=== PATIENT | female | born 1990 | race Two or more races ===

== ENCOUNTER 2019-09-23 09:03 | Emergency (ER) | payer OTHER ==
[~2019-09-23] VITALS: Ht 157.5 cm; Wt 83.0 kg
== END 2019-09-23 12:58 | disposition home or self-care (01) ==
LOC: ER 09:03
DX: R05 Cough (principal)

== ENCOUNTER → 2019-10-13 | Outpatient (CLI) | payer OTHER | END | disposition home or self-care (01) | LOC: PRENATAL 10-07 09:00 | DX: O35.3XX0 Maternal care for (suspected) damage to fetus from viral disease in mother, not applicable or unspecified (principal); O34.219 Maternal care for unspecified type scar from previous cesarean delivery; O99.212 Obesity complicating pregnancy, second trimester; O35.0XX0 Maternal care for (suspected) central nervous system malformation in fetus, not applicable or unspecified; O26.872 Cervical shortening, second trimester ==

== ENCOUNTER 2019-12-08 09:55 | Outpatient (CLI) | payer OTHER | END 2019-12-08 10:05 | disposition home or self-care (01) | LOC: RAD 09:55 | DX: R76.11 Nonspecific reaction to tuberculin skin test without active tuberculosis (principal) ==

== ENCOUNTER → 2020-01-05 | Outpatient (CLI) | payer OTHER ==
[~2020-01-05] MED LIST: PRENATAL PLUS1 EAC1 PO
== END | disposition home or self-care (01) ==
LOC: PRENATAL 10:00
PROVIDERS: ATTEND Specialist
DX: O36.8131 Decreased fetal movements, third trimester, fetus 1 (principal); O26.843 Uterine size-date discrepancy, third trimester; O24.410 Gestational diabetes mellitus in pregnancy, diet controlled; O34.211 Maternal care for low transverse scar from previous cesarean delivery

== ENCOUNTER 2020-02-13 13:35 | Inpatient (IN) | payer OTHER ==
[~2020-02-13] VITALS: Ht 157.5 cm; Wt 4.1 kg
[2020-02-17] MEDS ORDERED: PRENATAL PLUS1 EAC1 PO (06:13)
[2020-02-20] MEDS ORDERED: PRENATAL PLUS1 EAC1 PO (14:38)
[2020-02-20] MEDS ORDERED: NAPR500T14 PO (14:38)
[2020-02-20] MEDS ORDERED: MAXFE CAPLET1 EACH PO (14:38)
== END 2020-02-20 14:55 | disposition home or self-care (01) | DRG 785 ==
LOC: OB/GYN 02-17 05:46 → O/R 02-17 05:46 → OB/GYN 02-17 09:30
PROVIDERS: ADMIT Specialist; ATTEND Specialist
PROC: 0UL70ZZ Occlusion of Bilateral Fallopian Tubes, Open Approach (ICD-10-PCS; 2020-02-17)
PROC: 4A1HXCZ Monitoring of Products of Conception, Cardiac Rate, External Approach (ICD-10-PCS; 2020-02-17)
PROC: 10D00Z1 Extraction of Products of Conception, Low, Open Approach (ICD-10-PCS; principal; 2020-02-17 09:30)
DX: O82 Encounter for cesarean delivery without indication (principal); Z3A.38 38 weeks gestation of pregnancy; Z37.0 Single live birth; Z30.2 Encounter for sterilization